=== PATIENT | female | born 1965 | race Caucasian/White ===

== ENCOUNTER → 2020-08-22 | Outpatient (CLI) | payer BC ==
[~2020-08-22] MED LIST: ALPR.25; ALPR.5; APPLE CIDER VI; BUPR100; CIPR500 PO; CYAN100; Calcium-Magnes1 EAC6; FAMO20 PO; FISH1000; GATI5OPSO OD; Glucosamine Co1 EAC1; IBUP800; OMEP20ER; ONDA4 PO; OXYC5; PROBIOTIC1 EAC1; PROM25 PO; TRAZ100
== END | disposition home or self-care (01) ==
LOC: LAB SHORT 10:46 → PLD 10:46
DX: L82.1 Other seborrheic keratosis (principal)
CPT/HCPCS: 88305

== ENCOUNTER → 2021-04-28 | Outpatient (CLI) | payer BC | LOC: LAB 11:17 → LAB SHORT 11:17 | DX: L81.4 Other melanin hyperpigmentation (principal) | CPT/HCPCS: 88305 ==

== ENCOUNTER 2021-11-22 16:23 | Inpatient (IN) | payer OTHER ==
[~2021-11-22] VITALS: Ht 167.6 cm; Wt 84.4 kg
[2021-11-22] MEDS ORDERED: ALPRAZOLAM0.5 M1 PO (16:30)
[2021-11-22] MEDS ORDERED: LIOT5 PO (16:30)
[2021-11-22] MEDS ORDERED: NEURONTIN300 MG PO (16:30)
[2021-11-22] MEDS ORDERED: SYNTHROID50 MC1 PO (16:31)
[2021-11-22] MEDS ORDERED: MELO7.5 PO (16:32)
[2021-11-22 22:19] LABS: Influenza A, PCR NEGATIVE (NEGATIVE); Influenza B, PCR NEGATIVE (NEGATIVE); Resp Syncytial Virus, PCR NEGATIVE (NEGATIVE); SARS-Cov-2 (COVID-19) PCR, MMC NEGATIVE (NEGATIVE)
--- NOTE | 2021-11-23 03:27 | NUR ---
PT. REQUESTED PAIN MEDICINE, WHEN I HAD IT IN THE ROOM GETTING READY TO GIVE IT, PT. REQUESTED TO HOLD ON TO PAIN MEDICINE & GET MEDICINE FOR NAUSEA INSTEAD PT. STATED " MY PAIN IS NOT THAT BAD,I CAN TOLERATE IT".
--- NOTE | 2021-11-23 03:30 | NUR ---
SHIFT SUMMARY: PT. CAME IN WITH COMPLAINTS OF PAIN OF 5-6/10 TO LEFT HIP, LATER MEDICATED WITH DILAUDED PT. RECEIVED PAIN MEDICINE IN ER BEFORE ADMISSION TO THE UNIT. G 20 VASCULAR ACCESS TO LEFT AC NOTED LEAKING & DISLODGED. NEW VASCULAR ACCESS PLACED TO RIGHT AC WHICH PT. TOLERATED WELL.RASHES TO RIGHT UPPER NOTED WHICH PT. CLAIMED RELATED TO B/P CUFF PLACEMENT IN ER. PT. IS AOX4, CAN TURN TO SIDE FOR REPOSITIONING & BEDPAN USE BUT SCREAMS AT TIMES FOR COMPLAINTS OF PAIN. SEEN BY SURGEON IN ROOM & PER PT. PLAN OF SURGERY AT 7 AM TODAY. NPO INITIATED AT MIDNIGHT.MEDICATION RECONCILIATION DONE PER MD ORDER TO TAKE CARDIAC MEDICINE ONLY WITH SMALL SIPS OF WATER WHILE NPO.WILL CONTINUE TO MONITOR.
--- NOTE | 2021-11-23 10:20 | NUR ---
PATIENT TO SURGERY VIA BED AT THIS TIME.
--- NOTE | 2021-11-23 10:30 | NUR ---
11/23/21 1030 Timothy Verduzco NO PREOPERATIVE ANTIBOTICS ORDERED
--- NOTE | 2021-11-23 11:42 | NUR ---
Patient back to floor at 1105. Alert and stood up and walk to bathroom to void with FWW, tolerate well, states pain is minimal "just a little sore right now". Coffee, water, and yogurt given per pt. request at this time.
--- NOTE | 2021-11-23 12:27 | NUR ---
PT. DISCHARGED AT 1220. PATIENT TOLERATE AMBULATION , TOLERATE FOODS, AND STATES L HIP PAIN IS UNDER CONTROL. PATIENT VOID WITHOUT PROBLEM. DC INSTRUCTIONS GIVEN. HERE TO TAKE PT. HOME. W/C TO EXIT.
== END 2021-11-23 12:23 | disposition home or self-care (01) | DRG 561 ==
LOC: ER 16:23 → SURS 18:00
PROVIDERS: ADMIT Orthopaedic Surgery
PROC: 0SWSXJZ Revision of Synthetic Substitute in Left Hip Joint, Femoral Surface, External Approach (ICD-10-PCS; principal; 2021-11-23 13:15)
DX: T84.021A Dislocation of internal left hip prosthesis, initial encounter (principal); K58.9 Irritable bowel syndrome, unspecified; F32.A Depression, unspecified; F41.9 Anxiety disorder, unspecified; Z20.822 Contact with and (suspected) exposure to COVID-19; Y83.8 Other surgical procedures as the cause of abnormal reaction of the patient, or of later complication, without mention of misadventure at the time of the procedure; Z88.6 Allergy status to analgesic agent; Z88.5 Allergy status to narcotic agent; Z91.018 Allergy to other foods; Z98.890 Other specified postprocedural states; Z98.51 Tubal ligation status
CPT/HCPCS: 0241U; 27265; 73502; 99152; 99285-25; J1170; J2405; J2704; J7030; J7120

== ENCOUNTER → 2022-07-09 | Outpatient (CLI) | payer OTHER ==
[~2022-07-09] MED LIST changes: +ALPRAZOLAM0.5 M1 PO; +LIOT5 PO; +MELO7.5 PO; +NEURONTIN300 MG PO; +SYNTHROID50 MC1 PO
== END | disposition home or self-care (01) ==
LOC: PLD 15:46 → LAB SHORT 15:46
DX: L57.0 Actinic keratosis (principal)
CPT/HCPCS: 88305; 88312

== ENCOUNTER 2024-10-17 07:51 | Day surgery (SDC) | payer OTHER ==
[2024-10-17] VITALS (15 sets, daily range): BP systolic 101–147; BP diastolic 48–94
[~2024-10-17] VITALS: Ht 165.1 cm; Wt 88.3 kg
[~2024-10-17 07:51] MED LIST changes: +ASCORBIC ACID500 MG PO; +Acetaminophen 500 MG Tab PO SCH; +Bupivacaine 0.5% Inj 10 ML Vial ONE; +CALCIUM-MAGNES1 EAC9 PO; -Calcium-Magnes1 EAC6; +CeFAZolin Sodium 2,000 MG in NS 100 ML IV SCH; +Chlorhexidine Mouth Care 15 ML UDC MT SCH; +GABA300 PO; +GENICIN500 M1; +GLUCOSAMINE COMPLEX PO; -Glucosamine Co1 EAC1; +LATA.005SO BOTHEYES; +LEVSOD25 PO; +Lactated Ringer's 1,000 ML IV SCH; +MAGCHL64ER PO; +MULVITA PO; -OMEP20ER; +OMEP20ER PO; +OxyCODONE HCL 10 MG TABCR PO SCH; +PROBIOTIC PO; -PROBIOTIC1 EAC1; +PSYLLIUM FIBER PO; +Ropivacaine 0.5% HCl/Pf 123.125 MG,EPINEPHrine HCL 0.25 MG,Ketorolac Tromethamine 15 MG... INFIL SCH; +Seroquel Xr50 MG PO; +TIMO.5OPSO BOTHEYES; +Tranexamic Acid 1,000 MG in NS 100 ML IV SCH; +VITAMIN D310 MC4 PO; +WEGOVY0.25 MG/0. SQ; +[UNRECOGNIZED DRUG - OTHER] PO; +propofoL 0 ML IV ONE
[2024-10-17] MEDS ORDERED: MAGMIND48 MG PO (08:14)
[2024-10-17] MEDS ORDERED: ZINC50 M3 PO (08:15)
[2024-10-17] MEDS ORDERED: Ketorolac Tromethamine 30mg Vial ONE (08:33)
[2024-10-17] MEDS ORDERED: FentaNYL Citrate 50 MCG/ML 2 ML Injection ONE (08:33)
[2024-10-17] MEDS ORDERED: Dexamethasone Sod Phos 10 MG/ML 1ML VIAL ONE (08:33)
[2024-10-17] MEDS ORDERED: Ondansetron HCl 2 MG / ML 2ML Vial ONE (08:33)
[2024-10-17] MEDS ORDERED: CeFAZolin Sodium 2,000 MG VIAL ONE (09:15)
[2024-10-17] MEDS ORDERED: propofoL 100 ML IV ONE (09:30)
[2024-10-17] MEDS ORDERED: Bupivacaine 0.5% Inj 10 ML Vial ONE (09:30)
[2024-10-17] MEDS ORDERED: DiphenhydrAMINE HCL 25 MG Cap PO PRN (09:35)
[2024-10-17] MEDS ORDERED: Bisacodyl 10 MG Supp PR PRN (09:35)
[2024-10-17] MEDS ORDERED: FLU VACC TS2024-25(6MOS UP)/PF 45 MCG/0.5 ML SYRINGE IM PRN (09:35)
[2024-10-17] MEDS ORDERED: Promethazine HCl 25 MG Tab PO PRN (09:35)
[2024-10-17] MEDS ORDERED: HYDROmorphone HCl/Pf 1MG SYR IV PRN (09:35)
[2024-10-17] MEDS ORDERED: OxyCODONE HCL 5 MG TAB PO PRN ×2 (09:40)
[2024-10-17] MEDS ORDERED: Lactated Ringer's 1,000 ML IV SCH (09:40)
[2024-10-17] MEDS ORDERED: Magnesium Hydroxide Conc 10 ML UDC PO PRN (09:40)
[2024-10-17] MEDS ORDERED: Metoclopramide HCl 5MG / ML 2ML Vial IV PRN (09:40)
[2024-10-17] MEDS ORDERED: Ondansetron HCl 2 MG / ML 2ML Vial IV PRN (09:40)
[2024-10-17] MEDS ORDERED: Phenylephrine HCl 100 MCG/ML-NS 10MLSYR (1MG/10ML) ONE (10:17)
[2024-10-17] MEDS ORDERED: Vasopressin 20 UNITS/ML 1ML Vial ONE (11:00)
[2024-10-17] MEDS ORDERED: Ketorolac Tromethamine 15mg Vial IV SCH (12:00)
--- NOTE | 2024-10-17 14:09 | NUR ---
PT ARRIVED TO THE ROOM AT 1245. PT ALERT, ORIENTED AND PLEASANT. PT REPORTS FEELING ANXIOUS ABOUT DISCHARGE, PT EDUCATED THAT DECISION DOES NOT NEED TO BE MADE AT THAT TIME. WE DISCUSSED THE GOALS THAT WILL NEED TO BE MET PRIOR TO DISCHARGE. PT DENIES PAIN. SHE IS MOVING ALL EXTREMITIES. SPINAL SITE AND INCISION SITE WNL.
[2024-10-17] MEDS ORDERED: Acetaminophen 500 MG Tab PO SCH (16:00)
[2024-10-17] MEDS ORDERED: CeFAZolin Sodium 2,000 MG in NS 100 ML IV SCH (18:30)
--- NOTE | 2024-10-17 18:45 | NUR ---
SHIFT SUMMARY PT IS POD#0. PAIN MANAGED WITH PO PAIN MEDICATION. PT WAS UNABLE TO WORK WITH THERAPY R/T TO NUMBNESS. PT HAS BEEN VOIDING, USING THE BSC. SHE IS TOLERATING PO. VSS. PT USES CALL LIGHT APPROPRIATELY.
[2024-10-17] MEDS ORDERED: Zinc Sulfate 220 MG Cap (Provides 50MG) PO SCH (21:00)
[2024-10-17] MEDS ORDERED: MAGNESIUM PO SCH (21:00)
[2024-10-17] MEDS ORDERED: Timolol 0.5% Opth Soln 5 ML BOTHEYES SCH (21:00)
[2024-10-17] MEDS ORDERED: [UNRECOGNIZED DRUG - OTHER] PO SCH (21:00)
[2024-10-17] MEDS ORDERED: Lactobacil 2-S.Thermo-Bifido 1 1 Cap PO SCH (21:00)
[2024-10-17] MEDS ORDERED: Gabapentin 300 MG Cap PO SCH (21:00)
[2024-10-17] MEDS ORDERED: Latanoprost 0.005% Opth Soln 2.5 ML BOTHEYES SCH (21:00)
[2024-10-17] MEDS ORDERED: Docusate Sodium 100 MG Cap PO SCH (21:00)
[2024-10-17] MEDS ORDERED: QUEtiapine Fumarate 50 MG TAB PO SCH (21:00)
[2024-10-18 04:43] VITALS: BP 144/84
[2024-10-18 05:04] LABS: BASOPHILS ABSOLUTE AUTO 0.03 K/mm3 (0.00-0.23); BASOPHILS PERCENT AUTO 0 % (0-2); EOSINOPHILS ABSOLUTE AUTO 0.04 K/mm3 (0.00-0.68); EOSINOPHILS PERCENT AUTO 0 % (0-6); Hematocrit 36.7 % (33.0-51.0); Hemoglobin 12.4 g/dL (11.5-16.0); IMMATURE GRAN ABSOLUTE AUTO 0.05 K/mm3 (0.00-0.10); IMMATURE GRAN PERCENT AUTO 1 % (0-1); LYMPHOCYTES ABSOLUTE AUTO 2.29 K/mm3 (0.84-5.20); LYMPHOCYTES PERCENT AUTO 21 % (21-46); MONOCYTES ABSOLUTE AUTO 1.04 K/mm3 (0.16-1.47); MONOCYTES PERCENT AUTO 10 % (4-13); Mean Corpuscular HGB 31.7 pg (26.0-34.0); Mean Corpuscular HGB Conc 33.8 g/dL (31.5-36.5); Mean Corpuscular Volume 94 fL (80-100); Mean Platelet Volume 8.9 fL (9.1-12.4); NEUTROPHILS ABSOLUTE AUTO 7.26 K/mm3 (1.96-9.15); NEUTROPHILS PERCENT AUTO 68 % (41-73); Platelet Count 190 K/mm3 (150-400); RDW Coefficient Variation 12.8 % (11.7-14.2); RDW Standard Deviation 43.8 fL (35.1-46.3); Red Blood Cell Count 3.91 M/mm3 (3.80-5.20); White Blood Cell Count 10.71 K/mm3 (4.00-11.30)
--- NOTE | 2024-10-18 05:58 | NUR ---
SHIFT SUMMARY POD 1 L TKA. NO ACUTE CHANGES. VSS. TOLERATING ORALS. VOIDING. AMBULATES USING FWW c GB & 1 PERSON ASSIST. PT REPORTS PAIN TOLERABLE, MEDICATED PER EMAR, POLAR PACK IN USE. AQUACEL DRESSING C/D/I. ANTICIPATED TO WORK c PHYSCIAL THERAPY THEN DISCHARGE HOME. CALL LIGHT IN REACH, RESTING IN CHAIR, WILL REPORT TO DAY RN.
[2024-10-18] MEDS ORDERED: Liothyronine Sodium 5 MCG Tab PO SCH (06:00)
[2024-10-18] MEDS ORDERED: Levothyroxine Sodium 0.05 MG Tab PO SCH (06:00)
[2024-10-18 06:13] LABS: Bun/Creatinine Ratio 27.8 (12.0-20.0); Calcium, Blood 9.3 mg/dL (8.5-10.1); Creatinine, Blood 0.65 mg/dL (0.40-1.00); Potassium, Blood 3.9 mmol/L (3.5-5.5)
[2024-10-18 07:19] VITALS: BP 140/85
[2024-10-18] MEDS ORDERED: ASPI81CH PO (08:44)
[2024-10-18] MEDS ORDERED: Cholecalciferol 400 unit Tab PO SCH (09:00)
[2024-10-18] MEDS ORDERED: Multivitamins 1 Tab PO SCH (09:00)
[2024-10-18] MEDS ORDERED: Omeprazole 20 MG CapCR PO SCH (09:00)
[2024-10-18] MEDS ORDERED: Aspirin 81 MG Chew PO SCH (09:00)
--- NOTE | 2024-10-18 10:17 | NUR ---
DISCHARGE PT HAS WORKED w/ THERAPY. PAIN WELL CONTROLLED. EATING, DRINKING, & VOIDING WELL. CHELLE & TONY BROWN SENT w/ PT. ESCORTED OUT VIA W/C.
== END 2024-10-18 10:13 | disposition home or self-care (01) ==
LOC: ORSCMMR 07:51 → ORD 09:15 → SURS 12:37 → ORSCMMR 10-18 10:13
PROVIDERS: Orthopaedic Surgery
DX: M17.12 Unilateral primary osteoarthritis, left knee (principal); E03.9 Hypothyroidism, unspecified; Z87.891 Personal history of nicotine dependence; E66.9 Obesity, unspecified; Z68.32 Body mass index [BMI] 32.0-32.9, adult; Z79.899 Other long term (current) drug therapy
CPT/HCPCS: 36415; 73560-LT; 80048; 85025; 97110; 97116; 97162; A9270; C1713; C1776; J0171; J0690; J0735; J1100; J1885; J2371; J2405; J2704; J2795; J3010; J7120